=== PATIENT | female | born 1995 | race Asian ===

== ENCOUNTER 2019-03-19 21:30 | Emergency (ER) | payer SELFPAY ==
[~2019-03-19] VITALS: Ht 162.6 cm; Wt 53.1 kg
--- NOTE | 2019-03-19 21:42 | NUR ---
pt not in the waiting room, in the restroom per boyfriend statement.
[2019-03-19 21:58] VITALS: BP 119/73
--- NOTE | 2019-03-19 21:59 | NUR ---
ED Nurse Note: pt walked in for possible rabies, pt reports she has cankersore in her mouth and states her parents dogs licked her multiple times and is concerned that she could be exposed to rabies after reading it on internet. pt denies any other sx. pt denies fever denies sob nor any recent neuro changes, denies any sx infection. will cont monitor.
--- NOTE | 2019-03-19 22:25 | Emergency Room Report ---
History of Present Illness General Chief Complaint: General Complaint Source: Patient Present Illness HPI Is a 24-year-old female with no past medical history. She presents with chief complaint of possible rabies exposure. She was in [place] and they adopted a. It has been to the catering assistant. It is up-to-date with his shots except for rabies shots. She was told that it was too young for rabies shot. She had the dog for a month now. The dog is been licking her face. She had a small pimple on her face and the dog licked it. She is been looking online and seen all horrible things about rabies. She was concerned. The dog is fine. It is the family pet. Patient denies any other symptoms. No fever chills but no nausea no vomiting. Allergies: Coded Allergies: No Known Allergies (Unverified , 03/19/19) Patient History Past Medical History: see triage record, old chart reviewed Past Surgical History: none Pertinent Family History: none Social History: Denies: smoking Last Menstrual Period: 02/17/19 Now: No Immunizations: UTD Reviewed Nursing Documentation: PMH: Agreed; PSxH: Agreed Nursing Documentation-PMH Past Medical History: No Stated History Review of Systems Eye: Denies: eye pain, blurred vision ENT: Denies: ear pain, nose congestion, throat swelling Respiratory: Denies: cough, shortness of breath Cardiovascular: Denies: chest pain, palpitations Gastrointestinal: Denies: abdominal pain, diarrhea, nausea, vomiting Musculoskeletal: Denies: back pain, joint pain Skin: Denies: rash Neurological: Denies: headache, numbness Endocrine: Denies: increased thirst, increased urine Hematologic/Lymphatic: Denies: easy bruising All Other Systems: negative except mentioned in HPI Physical Exam Vital Signs Date Time Temp Pulse Resp B/P (MAP) Pulse Ox O2 Delivery O2 Flow Rate FiO2 03/19/19 21:53 98.8 102 18 119/73 (88) 98 Room Air Vitals normal Sp02 EP Interpretation: reviewed, normal General Appearance: well appearing, no apparent distress, alert Head: normocephalic, atraumatic Eyes: bilateral eye PERRL, bilateral eye EOMI ENT: hearing grossly normal, normal pharynx Neck: full range of motion, supple, no meningismus Respiratory: chest non-tender, lungs clear, normal breath sounds Cardiovascular #1: regular rate, rhythm, no murmur Gastrointestinal: normal bowel sounds, non tender, no mass, no organomegaly, no bruit, non-distended Musculoskeletal: back normal, gait/station normal, normal range of motion Psychiatric: mood/affect normal Medical Decision Making Diagnostic Impression: Primary Impression: Normal exam Additional Impression: Encounter for generalized patient complaints ER Course Patient here because of concern about rabies. Explained to her that is a family pet and can be observed for a week. She had exposure for over a month and no problems. This is not rabies. Patient reassured. Will discharge home. Last Vital Signs Date Time Temp Pulse Resp B/P (MAP) Pulse Ox O2 Delivery O2 Flow Rate FiO2 03/19/19 21:53 98.8 102 18 119/73 (88) 98 Room Air Status: unchanged Disposition: HOME, SELF-CARE Condition: Stable Additional Instructions: Follow-up with your doctor as needed in 7 days. Have your dog gets sick and within a week, may need a brain biopsy to rule out rabies. Return if worse. Faustino Magdaleno MD Mar 19, 2019 22:25
[2019-03-19 22:32] VITALS: BP 119/73
--- NOTE | 2019-03-19 22:32 | NUR ---
ED Nurse Note: Pt cleared by ERMD for discharge. DC instructions/prescription was given and explained to pt and verbalized understanding of teachings. All medical deviecs such as ID band removed. Pt is AAO x4, ambulatory and left with all personal belongings.
== END 2019-03-19 22:32 | disposition home or self-care (01) ==
LOC: EMR 22:15
DX: Z00.00 Encounter for general adult medical examination without abnormal findings (principal)
CPT/HCPCS: 99281